=== PATIENT | male | born 1955 | race Caucasian/White ===

== ENCOUNTER 2022-01-02 06:40 | Day surgery (SDC) | payer MEDICARE, MEDICAID ==
[~2022-01-02] VITALS: Ht 180.3 cm; Wt 86.2 kg
[~2022-01-02 06:40] MED LIST: LISINOPRIL10 MG PO; OMEPRAZOLE20 MG PO; SILDENAFIL100 MG PO
[2022-01-02 10:00] VITALS: BP 126/68
== END 2022-01-02 09:55 | disposition home or self-care (01) ==
LOC: ENDO 06:40
PROVIDERS: ATTEND Surgery
PROC: 0DJD8ZZ Inspection of Lower Intestinal Tract, Via Natural or Artificial Opening Endoscopic (ICD-10-PCS; principal; 2022-01-02)
DX: Z12.11 Encounter for screening for malignant neoplasm of colon (principal); I10 Essential (primary) hypertension